=== PATIENT | female | born 1955 | race African-American/Black ===

== ENCOUNTER 2017-04-13 10:17 | Observation (INO) | payer OTHER ==
[~2017-04-13] VITALS: Ht 165.1 cm; Wt 75.3 kg
[2017-04-13] MEDS ORDERED: HYDROmorphone PF 1 MG/ML DISP.SYRIN IV PRN (10:45)
[2017-04-13 10:53] LABS: BASO # 0.1 x10^3/uL (0.0-0.2); BASO % 1 % (0-3); EOS % 0 % (0-3); HEMATOCRIT 38.6 % (36.0-47.0); LYMPH # 1.8 x10^3/uL (1.0-4.8); LYMPH % 21 % (24-48); MEAN CORPUSCULAR HEMOGLOBIN 32 pg (25-35); MEAN CORPUSCULAR HGB CONC 34 g/dL (31-37); MEAN CORPUSCULAR VOLUME 96 fL (79-100); MONO # 0.6 x10^3/uL (0.0-1.1); MONO % 8 % (0-9); NEUT # 6.1 x10^3uL (1.8-7.7); NEUT % 71 % (31-73); PLATELET COUNT 190 x10^3/uL (140-400); RED CELL DISTRIBUTION WIDTH 14.1 % (11.5-14.5); WHITE BLOOD COUNT 8.6 x10^3/uL (4.0-11.0)
--- NOTE | 2017-04-13 10:56 | PHYS DOC ---
Past History Past Medical History: Arthritis Past Surgical History: Hysterectomy, Other Alcohol Use: None Drug Use: None Adult General Chief Complaint Chief Complaint: CHEST PAIN HPI HPI 61-year-old female presenting to the emergency department for 2 chief complaints chest pain and left foot pain. The patient arrives today by EMS after calling EMS because she had chest pain with diaphoresis and lightheadedness. It started about an hour ago was associated with nausea without vomiting. She reports EMS arrived and upon arrival her chest pain began resolving. She was initially on her way to the [facility] for evaluation of her left foot which also hurts. As far as her left foot is concerned the patient has pain that is mild intermittent. She has a history of arthritis that she reports the pain is worse with walking. Nonradiating and without alleviating or exacerbating factors. No medications were given in route to the hospital. The patient has a history of high blood pressure high cholesterol and has smoked for about 40 years.The patient denies unilateral leg swelling hemoptysis family or personal history of blood clotting disorders. The pt denies recent immobilization or surgery. Review of systems is negative for fevers chills cough abdominal pain. Positive for nausea diaphoresis chest pain. All other review of systems is negative unless otherwise noted in history of present illness. ED course: 61-year-old female presenting with left foot pain and chest pain. Triage vital signs unremarkable. Normal heart rate. Normal blood pressure. Upon arrival to the urgency department the patient's chest pain has resolved. EKG obtained. Chest x-ray and x-ray of the left foot were obtained as well. Blood work sent. Aspirin, hydromorphone and Zofran given. On examination the patient had an irregular heartbeat, however on EKG the patient has a clear sinus rhythm. It is possible the patient has intermittent atrial fibrillation. Given the patient's heart score which was calculated to be 5, the pt was admitted for cardiac rule out, further evaluation workup and care. Review of Systems Review of Systems SEE ABOVE Physical Exam Physical Exam Constitutional: Well developed, well nourished, no acute distress, non-toxic appearance. [] HENT: Normocephalic, atraumatic, bilateral external ears normal, oropharynx moist, no oral exudates, nose normal. [] Eyes: PERRLA, EOMI, conjunctiva normal, no discharge. [] Neck: Normal range of motion, no tenderness, supple, no stridor. [] Cardiovascular: Heart rate is regular with an irregular rhythm. No murmurs present. Lungs & Thorax: Bilateral breath sounds clear to auscultation [] Abdomen: Bowel sounds normal, soft, no tenderness, no masses, no pulsatile masses. [] Skin: Warm, dry, no erythema, no rash. [] Back: No tenderness, no CVA tenderness. [] Extremities: The patient has mild pain in the left foot along the dorsum of the foot. Nontender ankle with normal range of motion. Palpable pulse. 2 second cap refill. Normal temperature to touch and color. Neurologic: Alert and oriented X 3, normal motor function, normal sensory function, no focal deficits noted. [] Psychologic: Affect normal, judgement normal, mood normal. [] EKG EKG EKG reviewed by myself shows sinus rhythm with regular rate. Jones is normal. ST segments are congruent. Not suggestive of ACS. Radiology/Procedures Radiology/Procedures Chest x-ray reviewed by myself shows no obvious infiltrate or pneumothorax present. No obvious acute cardiopulmonary process present. Course & Med Decision Making Course & Med Decision Making Pertinent Labs and Imaging studies reviewed. (See chart for details) [] Dragon Disclaimer Dragon Disclaimer This chart was dictated in whole or in part using Voice Recognition software in a busy, high-work load, and often noisy Emergency Department environment. It may contain unintended and wholly unrecognized errors or omissions. Departure Departure: Impression: Primary Impression: Chest pain Additional Impression: Left foot pain Disposition: 09 ADMITTED INPATIENT Admitting Physician: Ivana Jimenez Condition: STABLE Referrals: JANES HERNANDEZ APRN (PCP) Problem Qualifiers PEDRO NARANJO MD Apr 13, 2017 10:56
--- NOTE | 2017-04-13 10:58 | RAD ---
Three-view left foot radiographs 04/13/2017 Clinical history: Left foot pain. AP, lateral and oblique digital portable radiographs of the left foot were obtained. No fracture or dislocation of the left foot is seen. Mild to moderate degenerative changes are seen throughout the interphalangeal and first MTP joint of the left foot are seen. Impression: Degenerative changes are seen involving the left foot as outlined above. No acute osseous abnormality is seen.
--- NOTE | 2017-04-13 11:05 | EKG ---
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
--- NOTE | 2017-04-13 11:05 | RAD ---
AP portable chest radiograph 04/13/2017 Clinical History: Chest pain with dizziness. An AP portable erect digital radiograph of the chest was obtained. Comparison study is dated 12/03/2007. The cardiac silhouette is normal in size and configuration. The thoracic aorta is mildly tortuous. Atherosclerotic calcification of the thoracic aorta is seen. A 5 mm calcified granuloma overlies the left midlung, unchanged. No acute pulmonary infiltrate is seen. No pleural effusion or pneumothorax is noted. Degenerative changes are seen involving the thoracic spine and both shoulders. Impression: No acute abnormality is seen.
[2017-04-13 11:14] LABS: ALBUMIN 3.5 g/dL (3.4-5.0); CALCIUM 8.9 mg/dL (8.5-10.1); CREATININE 1.1 mg/dL (0.6-1.0); DIRECT BILIRUBIN 0.1 mg/dL (0.0-0.2); GFR 61.3; POTASSIUM 3.6 mmol/L (3.5-5.1); TOTAL BILIRUBIN 0.4 mg/dL (0.2-1.0); TOTAL PROTEIN 7.4 g/dL (6.4-8.2)
[2017-04-13] MEDS ORDERED: ASPIRIN 81 MG TAB.CHEW PO ONE (11:15)
[2017-04-13] MEDS ORDERED: ONDANSETRON PF 4 MG/2 ML VIAL. IV ONE (11:15)
[2017-04-13] MEDS ORDERED: MORPHINE SULFATE 2 MG/ML DISP.SYRIN. IV PRN (11:45)
[2017-04-13] MEDS ORDERED: ONDANSETRON PF 4 MG/2 ML VIAL. IV PRN (11:45)
[2017-04-13 12:37] LABS: BACTERIA,URINE FEW /HPF (0-FEW); BILIRUBIN,URINE NEG (NEG); CLARITY,URINE CLEAR; COLOR,URINE YELLOW; GLUCOSE,URINE NEG (NEG); HYALINE CASTS, URINE OCC /HPF; NITRITE,URINE NEG (NEG); SQUAMOUS EPITHELIAL CELL,UR FEW /LPF; UROBILINOGEN,URINE 0.2 mg/dL (0.2 mg/dL); WBC,URINE OCC /HPF (0-4)
[2017-04-13 13:05] VITALS: BP 128/69
--- NOTE | 2017-04-13 14:14 | PDOC ---
PROVIDER NOTE PROVIDER NOTE PROVIDER NOTE CC: Chest pain HPI: 61 y.o woman presenting with chest pain. She had some left sided chest pain while she was getting ready to [facility]. she has history of RA. She denies any baseline angina, chest pain, orthopnea, PND or LE edema. No syncope or palpitations. Pain was sharp in nature, last a few seconds, recurred and she feels that this was related to intense pain in her foot. She had some associated nausea but no persistent issues recently. She denies any pain now. 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 Physical Exam: Constitutional: Well developed, well nourished, no acute distress, non-toxic appearance. [] HENT: Normocephalic, atraumatic, bilateral external ears normal, oropharynx moist, no oral exudates, nose normal. [] Eyes: PERRLA, EOMI, conjunctiva normal, no discharge. [] Neck: Normal range of motion, no tenderness, supple, no stridor. [] Cardiovascular:Heart rate regular rhythm, no murmur [] Lungs & Thorax: Bilateral breath sounds clear to auscultation [] Abdomen: Bowel sounds normal, soft, no tenderness, no masses, no pulsatile masses. [] Skin: Warm, dry, no erythema, no rash. [] Back: No tenderness, no CVA tenderness. [] Extremities: No tenderness, no cyanosis, no clubbing, ROM intact, no edema. [] Neurologic: Alert and oriented X 3, normal motor function, normal sensory function, no focal deficits noted. [] Psychologic: Affect normal, judgement normal, mood normal. [] Labs: negative troponin Normal EKG CXR unremarkable. Impression: 1. Non-cardiac CP 2. HTN - controlled 3. RA Plan: 1. If next set of trop are negative, ok to DC from CV perspective. 2. F/u on an outpt basis with our office, information given. Pls call w/questions. Thanks for consult. RITCHIE MACHADO MD Apr 13, 2017 14:14
[2017-04-13 14:25] VITALS: BP 134/72
[2017-04-13] MEDS ORDERED: ATEN50TA PO (16:10)
[2017-04-13] MEDS ORDERED: POTA20TA82 PO (16:10)
[2017-04-13] MEDS ORDERED: LEVO100T5 PO (16:10)
[2017-04-13] MEDS ORDERED: SENN-37 PO (16:10)
[2017-04-13] MEDS ORDERED: PRED2.5T PO (16:10)
[2017-04-13] MEDS ORDERED: HYDR25TA9 PO (16:10)
[2017-04-13] MEDS ORDERED: CHOL10003 PO (16:10)
[2017-04-13] MEDS ORDERED: FOLI1TAB16 PO (16:10)
[2017-04-13] MEDS ORDERED: methylPREDNISolone SOD SUCC PF 40 MG/ML VIAL. IV ONE (16:30)
[2017-04-13] MEDS ORDERED: KETOROLAC 15 MG/ML VIAL. IV ONE (16:35)
[2017-04-13] MEDS ORDERED: HYDROmorphone PF 1 MG/ML DISP.SYRIN IV ONE (16:35)
[2017-04-13 18:01] VITALS: BP 115/67
--- NOTE | 2017-04-13 19:16 | PDOC3 ---
Discharge Summary Visit Information Date of Admission: Apr 13, 2017 Date of Discharge: Apr 13, 2017 Final Diagnosis Problems Medical Problems: (1) Chest pain, non cardiac Status: Acute (2) Left foot pain-RA flare Status: Acute Problems: Brief Hospital Course Allergies Allergies Coded Allergies Type Severity Reaction Last Updated Verified No Known Drug Allergies 04/13/17 No Vital Signs Vital Signs Date Time Temp Pulse Resp B/P (MAP) Pulse Ox O2 Delivery O2 Flow Rate FiO2 04/13/17 18:01 97.4 62 20 115/67 (83) 97 Room Air Lab Results Laboratory Tests Test 04/13/17 10:40 04/13/17 12:00 04/13/17 15:00 White Blood Count 8.6 x10^3/uL (4.0-11.0) Red Blood Count 4.00 x10^6/uL (3.50-5.40) Hemoglobin 13.0 g/dL (12.0-15.5) Hematocrit 38.6 % (36.0-47.0) Mean Corpuscular Volume 96 fL (79-100) Mean Corpuscular Hemoglobin 32 pg (25-35) Mean Corpuscular Hemoglobin Concent 34 g/dL (31-37) Red Cell Distribution Width 14.1 % (11.5-14.5) Platelet Count 190 x10^3/uL (140-400) Neutrophils (%) (Auto) 71 % (31-73) Lymphocytes (%) (Auto) 21 % (24-48) Monocytes (%) (Auto) 8 % (0-9) Eosinophils (%) (Auto) 0 % (0-3) Basophils (%) (Auto) 1 % (0-3) Neutrophils # (Auto) 6.1 x10^3uL (1.8-7.7) Lymphocytes # (Auto) 1.8 x10^3/uL (1.0-4.8) Monocytes # (Auto) 0.6 x10^3/uL (0.0-1.1) Eosinophils # (Auto) 0.0 x10^3/uL (0.0-0.7) Basophils # (Auto) 0.1 x10^3/uL (0.0-0.2) Sodium Level 141 mmol/L (136-145) Potassium Level 3.6 mmol/L (3.5-5.1) Chloride Level 105 mmol/L (98-107) Carbon Dioxide Level 33 mmol/L (21-32) Anion Gap 3 (6-14) Blood Urea Nitrogen 14 mg/dL (7-20) Creatinine 1.1 mg/dL (0.6-1.0) Estimated GFR (Cockcroft-Gault) 61.3 Glucose Level 145 mg/dL (70-99) Calcium Level 8.9 mg/dL (8.5-10.1) Total Bilirubin 0.4 mg/dL (0.2-1.0) Direct Bilirubin 0.1 mg/dL (0.0-0.2) Aspartate Amino Transf (AST/SGOT) 17 U/L (15-37) Alanine Aminotransferase (ALT/SGPT) 21 U/L (14-59) Alkaline Phosphatase 66 U/L (46-116) Troponin I Quantitative < 0.017 ng/mL (0-0.055) < 0.017 ng/mL (0-0.055) YP-Osc-F-Type Natriuretic Peptide 120 pg/mL (0-124) Total Protein 7.4 g/dL (6.4-8.2) Albumin 3.5 g/dL (3.4-5.0) Lipase 105 U/L (73-393) Urine Collection Type Unknown Urine Color Yellow Urine Clarity Clear Urine pH 6.0 Urine Specific [place] 1.015 Urine Protein Neg (NEG-TRACE) Urine Glucose (UA) Neg mg/dL (NEG) Urine Ketones (Stick) Neg mg/dL (NEG) Urine Blood Trace (NEG) Urine Nitrite Neg (NEG) Urine Bilirubin Neg (NEG) Urine Urobilinogen Dipstick 0.2 mg/dL (0.2 mg/dL) Urine Leukocyte Esterase Neg (NEG) Urine RBC 3-5 /HPF (0-2) Urine WBC Occ /HPF (0-4) Urine Squamous Epithelial Cells Few /LPF Urine Bacteria Few /HPF (0-FEW) Urine Hyaline Casts Occ /HPF Urine Mucus Slight /LPF Brief Hospital Course Ms. De La Cruz is a 61 old female who developed sever left foot pain which she attributed to a RA flare. While she was having the sever pain in her foot she developed some chest pain with diaphoresis. It resolved but she was transported to the hospital. Troponins were negative. She was seen by the advertising sales manager. Physical exam negative except for a tender warm foot with erythema at the 5th metatarsal. she was given solumedrol, dilauded and toradol and discharged. she will see her doctor at the [facility]. Discharge Information Condition at Discharge: Improved, Stable Disposition/Orders: D/C to Home Dischare Medications Current Medications Hydromorphone HCl (Dilaudid) 0.5 mg PRN Q30MIN PRN IV severe pain Last administered on 04/13/17 11:01; Start 04/13/17 at 10:45 Ondansetron HCl (Zofran) 4 mg 1X ONCE IV Last administered on 04/13/17 11:00 ; Start 04/13/17 at 11:15; Stop 04/13/17 at 11:16; Status DC Aspirin (Children'S Aspirin) 324 mg 1X ONCE PO Last administered on 04/13/17 11:01; Start 04/13/17 at 11:15; Stop 04/13/17 at 11:16; Status DC Ondansetron HCl (Zofran) 4 mg PRN Q4HRS PRN IV NAUSEA/VOMITING; Start 04/13/17 at 11:45; Stop 04/14/17 at 11:44 Morphine Sulfate (Morphine 2mg Syringe) 2 mg PRN Q2HR PRN IV PAIN Last administered on 04/13/17 13:37; Start 04/13/17 at 11:45; Stop 04/14/17 at 11:44 Methylprednisolone Sodium Succinate (SOLU-Medrol 40MG VIAL) 40 mg 1X ONCE IV Last administered on 04/13/17 17:03; Start 04/13/17 at 16:30; Stop 04/13/17 at 16:31; Status DC Hydromorphone HCl (Dilaudid) 1 mg 1X ONCE IV Last administered on 04/13/17 17 :04; Start 04/13/17 at 16:35; Stop 04/13/17 at 16:36; Status DC Ketorolac Tromethamine (Toradol) 15 mg 1X ONCE IV Last administered on 17:03; Start 04/13/17 at 16:35; Stop 04/13/17 at 16:36; Status DC Active Scripts Active Reported Hydrochlorothiazide Tablet (Hydrochlorothiazide) 25 Mg Tablet 1 Tab PO DAILY Prednisone 2.5 Mg Tablet 2 Tab PO DAILY Potassium Chloride 20 Meq Tablet.er 20 Meq PO DAILY Levothyroxine Sodium 100 Mcg Tablet 1 Tab PO DAILY06 Folic Acid 1 Mg Tablet 1 Tab PO DAILY Senokot-S Tablet (Sennosides/Docusate Sodium) 1 Each Tablet 2 Tab PO BID Vitamin D3 (Cholecalciferol (Vitamin D3)) 1,000 Unit Tablet 3 Tab PO BID Atenolol 50 Mg Tablet 1 Tab PO DAILY SANDIE DEUTSCH DO Apr 13, 2017 19:16
--- NOTE | 2017-04-14 02:32 | ACF ---
Admission Criteria Forms CARDIOLOGY [facility]G Clinical Indications for Admission to Inpatient Care ( Place 'X' for any and all applicable criteria): Hospital admission is needed for appropriate care of the patient because of ANY ONE of the following (1): [ ] I. Hemodynamic instability as indicated by ALL of the following (1)(2)(3) (4)(5) [ ]a) Vital signs or other findings not as expected for chronic patient condition or baseline [ ]b) Instability indicated by ANY ONE of the following: [ ]i) Hypotension [ ]ii) Symptomatic Tachycardia unresponsive to treatment ( e.g., analgesia, fluids, sedation as indicated) [ ]iii) Inadequate perfusion indicated by ANY ONE of the following: [ ] 1) Lactic acidosis (> 2 mmol/L) [ ] 2) New abnormal capillary refill (> 3 seconds) [ ] 3) Reduced urine output [ ] 4) New altered mental status [ ]iv) Orthostatic vital sign changes unresponsive to treatment (e.g., fluids) [ ]v) IV inotropic or vasopressor medication required to maintain adequate blood pressure or perfusion [ ] II. Severe heart failure as indicated by ANY ONE of the following(17)(18) [ ]a) Respiratory distress [ ]b) Hypotension [ ]c) Anasarca (refractory to outpatient therapy) [ ]d) Cardiac arrhythmias of immediate concern [ ]e) Myocardial ischemia [ ] III. Cardiac arrhythmias or findings of immediate concern indicated by ANY ONE of the following (19)(20): [ ] a) Heart rhythms that are inherently dangerous or unstable indicated by ANY ONE of the following (21)(22)(23): [ ] i) Resuscitated ventricular fibrillation or cardiac arrest [ ] ii) Ventricular escape rhythm [ ] iii) Sustained ventricular tachycardia (30 seconds or more of ventricular rhythm at greater than 100 beats per minute) [ ] iv) Nonsustained ventricular tachycardia and ANY ONE of the following: [ ] 1) Suspected cardiac ischemia as cause or consequence of ventricular tachycardia [ ] 2) In setting of acute myocarditis [ ] b) Unstable cardiac conduction defects indicated by ANY ONE of the following(23)(24)(25) [ ] i) Type II second-degree atrioventricular block [ ]ii) Third-degree atrioventricular block [ ]iii) New-onset left bundle branch block with suspected myocardial ischemia [ ]c) Any heart rhythm and ANY ONE of the following (21)(22)(26)(27) (28) [ ] i) Continuous long-term ECG monitoring needed (e.g., initiation of drug requiring monitoring for more than 24 hours) [ ] ii) Patient has automatic implanted cardioverter defibrillator that is repeatedly firing, malfunctioning, or in need of immediate adjustment of settings beyond the scope of ambulatory or observation care [ ]d) Heart rhythms of concern due to ANY ONE of the following: [ ] i) Hypotension [ ] ii) Respiratory distress [ ] iii) Association with other significant symptoms (e.g., bradycardia with syncope or ongoing dizziness, supraventricular tachycardia with chest pain (14)(15)(17) [ ] IV. Monitoring for cardiac contusion beyond the scope of observation care needed [A](30)(31)(32) [ ] V. Surgical or device complication (e.g., valve replacement complication , pacemaker dysfunction) (35)(41)(44)(45)(46) [ ] . Inpatient palliative care needed. [B](49) Also use Inpatient Palliative Care Criteria [ ] VII. Nonbacterial thrombotic (marantic) endocarditis (36)(43)(47)(48) [X] VIII. Cardiology condition, symptom, or finding for which emergency and observation care has failed or are not considered appropriate. [ ] IX. Acute valvular disease requiring inpatient as indicated by ANY ONE of the following (41) [ ]a) Acute valvular regurgitation (42) [ ]b) Noninfectious valvulitis (43) [ ]c) Obstructive valve thrombosis [ ]d) Paravalvular leak [ ]e) Other significant valvular disorder remaining after emergency or observation level of care (as appropriate) [ ]X. Pericardial disease requiring inpatient treatment as indicated by ANY ONE of the following (33)(34)(35)(36)(37) [ ]a) Suspected tamponade (38)(39)(40) [ ]b) Hemopericardium [ ]c) Other significant pericardial disorder remaining after emergency or observation level of care (as appropriate) [ ] XI. Cardiac ischemia beyond scope of emergency and observation care. [ ] XII. Hypertension requiring inpatient treatment as indicated by ANY ONE of the following (6)(7)(8) [ ]a) SBP greater than 220 mm Hg or DBP greater than 120 mmHg despite treatment [ ]b) SBP greater than 140 mm Hg or DBP greater than 100 mm Hg with evidence of acute end organ damage as indicated by ANY ONE of the following [ ] i) Encephalopathy [ ] ii) Acute renal failure as indicated by new onset of ANY ONE of the following (9)(10)(11)(12)(13) [ ]1) 3-fold rise in serum creatinine from baseline [ ]2) Serum creatinine greater than 4 mg/dL ( 354 micromoles/L) with acute rise greater than 0.5 mg/dL (44.2 micromoles/L) [ ]3) Reduction of more than 75% in estimated glomerular filtration rate from baseline [ ]4) Estimated glomerular filtration rate less than 35 mL/min/1.73m2 (0.59 mL/sec/1.73m2) in child up to 18 years of age [ ]5) Cessation of urine output indicated by ALL of the following [ ]A. Adequate volume status [ ]B. Inadequate urine output as indicated by ANY ONE of the following [ ]a. Urine output less than 0.3 mL/kg/hr for 24 hours [ ]b. Anuria (urine output less than 0.1 mL/kg/hr) for 12 hours [ ] iii) Aortic dissection [ ] iv) Myocardial Ischemia [ ] v) Left ventricular heart failure [ ]vi) Retinal Hemorrhage [ ]vii) Other significant finding [ ]c) Hypertension in child requiring inpatient treatment as indicated by ALL of the following(14)(15)(16) [ ] i) Outpatient treatment not effective, not available, or not appropriate [ ]ii) SBP or DBP greater than 95th percentile for age [ ]iii) Evidence of acute end organ damage as indicated by ANY ONE of the following [ ]1) Altered mental status [ ]2) Acute renal failure as indicated by new onset of ANY ONE of the following(9)(10)(11)(12)(13) [ ]A. 3-fold rise in serum creatinine from baseline [ ]B. Serum creatinine greater than 4 mg/dL (354 micromoles/L) with acute rise greater than 0.5 mg/dL (44.2 micromoles/L) [ ]C. Reduction of more than 75% in estimated glomerular filtration rate from baseline [ ]D. Estimated glomerular filtration rate less than 35 mL/min/1.73m2 (0.59 mL/sec/1.73m2) in child up to 18 years of age [ ]E. Cessation of urine output indicated by ALL of the following [ ]a. Adequate volume status [ ]b. Inadequate urine output as indicated by ANY ONE of the following [ ]i) Urine output less than 0.3 mL/kg/hr for 24 hours [ ]ii) Anuria ( urine output less than 0.1 mL/kg/hr) for 12 hours [ ]3) Severe headache [ ]4) Visual disturbance [ ]5) Retinal hemorrhage [ ]6) Other significant finding [ ]XIII. Complications of transplanted heart indicated by ANY ONE of the following(61): [ ]a) Acute graft rejection requiring inpatient management (eg, intravenous immunosuppression)(62)(63) [ ]b) Acute graft heart failure indicated by ANY ONE of the following(64): [ ]i) Hemodynamic instability [ ]ii) Cardiac arrhythmias of immediate concern [ ]iii) Pulmonary edema that is very severe (eg, mechanical ventilation needed, imminent or likely, need for 100% oxygen to keep oxygen saturation above 90%) [ ]iv) Pulmonary edema that is persistent as indicated by ALL of the following: [ ]1) New need for oxygen therapy to keep oxygen saturation above 90% (or increased FiO2 need from baseline) [ ]2) Has not improved sufficiently with emergency department or observation care IV diuretics or other heart failure treatments[E] [ ]v) Altered mental status that is severe or persistent [ ]vi) Increased creatinine (new on laboratory test) with reduction of more than 50% in estimated glomerular filtration rate from baseline [ ]vii) Progressively (ongoing) rising creatinine (known from past laboratory test) with reduction of more than 25% in estimated glomerular filtration rate from baseline [ ]viii) Acute renal failure [ ]ix) Acute peripheral ischemia (eg, examination shows pulseless, cool, mottled, or cyanotic extremity) [ ]x) Pulmonary artery catheter monitoring needed [ ]xi) Other sign or symptom of heart failure requiring inpatient treatment (ie, too severe or not responsive to outpatient and observation care treatment) [ ]c) Infection requiring inpatient management (eg, Hemodynamic instability, need for intravenous antimicrobial treatment)(66)(67)(68)(69)(70) [ ]d) Cardiac allograft vasculopathy requiring inpatient management ( eg evidence of cardiac ischemia)(71) [ ]e) Other complication of transplanted heart (eg, stroke, severe pulmonary hypertension, severe valvular dysfunction) requiring inpatient management(72) The original [facility] content created by [facility] has been revised. The portions of the content which have been revised are identified through the use of italic text or in bold, and [facility] has neither reviewed nor approved the modified material. All other unmodified content is copyright [facility]. Please see references footnoted in the original [facility] edition 2016 Admission Criteria Met?: Yes DELONTE HURST Apr 14, 2017 02:32
== END 2017-04-13 19:00 | disposition home or self-care (01) ==
LOC: ER 10:17 → 1 SOUTH 12:00
PROVIDERS: ADMIT Family Medicine; ATTEND Family Medicine
DX: R07.89 Other chest pain (principal); M06.9 Rheumatoid arthritis, unspecified; I10 Essential (primary) hypertension; E78.00 Pure hypercholesterolemia, unspecified; Z87.891 Personal history of nicotine dependence; Z90.710 Acquired absence of both cervix and uterus; Z79.82 Long term (current) use of aspirin
CPT/HCPCS: 36415; 71010; 73630; 80048; 80076; 81001; 83690; 83880; 84484; 85027; 93005; 96374; 96375; 96376; 99285; G0378; J1170; J1885; J2270; J2405; J2920; G0379

== ENCOUNTER → 2017-11-07 | Outpatient (CLI) | payer OTHER ==
[~2017-11-07] MED LIST: ATEN50TA PO; CHOL10003 PO; FOLI1TAB16 PO; HYDR25TA9 PO; LEVO100T5 PO; POTA20TA82 PO; PRED2.5T PO; SENN-37 PO
--- NOTE | 2017-11-07 11:28 | RAD ---
DATE: 11/07/2017 EXAM: DIGITAL SCREEN BILAT W/CAD HISTORY: Asymptomatic screening mammogram COMPARISON: Mammogram from 08/03/2015, 01/12/2015, the 08/11/2014, 07/21/2014 This study was interpreted with the benefit of Computerized Aided Detection (CAD). The breast parenchyma is heterogeneously dense, which could reduce sensitivity of mammography. Breast parenchyma level C. FINDINGS: Bilateral CC and MLO views of the breasts were performed. Right breast: There are no suspicious microcalcifications, masses or areas of architectural distortion. Left breast: There are no suspicious microcalcifications, masses or areas of architectural distortion. Findings are stable from prior mammogram. IMPRESSION: Negative bilateral mammogram. BI-RADS CATEGORY: 1 NEGATIVE RECOMMENDED FOLLOW-UP: 12M 12 MONTH FOLLOW-UP PQRS compliance statement: Patient information was entered into a reminder system with a target due date 11/07/2018 for the next mammogram. Mammography is a sensitive method for finding small breast cancers, but it does not detect them all and is not a substitute for careful clinical examination. A negative mammogram does not negate a clinically suspicious finding and should not result in delay in biopsying a clinically suspicious abnormality. "Our facility is accredited by the [employer] Mammography Program."
== END | disposition home or self-care (01) ==
LOC: MAMMO 09:58
PROVIDERS: ATTEND Nurse Practitioner
DX: Z12.31 Encounter for screening mammogram for malignant neoplasm of breast (principal)
CPT/HCPCS: 77067

== ENCOUNTER → 2018-12-18 | Outpatient (CLI) | payer OTHER ==
[~2018-12-18] MED LIST changes: +HYDR-2145 PO; -HYDR25TA9 PO
--- NOTE | 2018-12-18 14:16 | RAD ---
DATE: 12/18/2018 EXAM: MAMMO JUANA SCREENING BILATERAL HISTORY: Routine screening COMPARISON: 11/07/2017 This study was interpreted with the benefit of Computerized Aided Detection (CAD). Breast Density: DENSE The breast parenchyma is dense, which could reduce the sensitivity of mammography. Breast parenchyma level density D. FINDINGS: 2-D and 3-D tomosynthesis imaging was performed in CC and MLO projections. No new or enlarging breast densities are seen. No suspicious microcalcifications are evident. IMPRESSION: Stable mammograms without evidence of malignancy. BI-RADS CATEGORY: 1 NEGATIVE RECOMMENDED FOLLOW-UP: 12M 12 MONTH FOLLOW-UP PQRS compliance statement: Patient information was entered into a reminder system with a target due date for the next mammogram. Mammography is a sensitive method for finding small breast cancers, but it does not detect them all and is not a substitute for careful clinical examination. A negative mammogram does not negate a clinically suspicious finding and should not result in delay in biopsying a clinically suspicious abnormality. "Our facility is accredited by the [employer] Mammography [employer]."
== END | disposition home or self-care (01) ==
LOC: MAMMO 10:54
PROVIDERS: ATTEND Nurse Practitioner Family
DX: Z12.31 Encounter for screening mammogram for malignant neoplasm of breast (principal)
CPT/HCPCS: 77063; 77067

== ENCOUNTER → 2020-03-09 | Outpatient (CLI) | payer OTHER ==
[~2020-03-09] MED LIST changes: +POTA20TA4 PO; -POTA20TA82 PO
--- NOTE | 2020-03-10 19:16 | RAD ---
DATE: 03/09/2020 2:00 PM EXAM: MAMMO JUANA SCREENING BILATERAL HISTORY: Screening COMPARISON: 12/18/2018, 11/07/2017 Bilateral CC and MLO views of the breasts were performed. Bilateral breast tomosynthesis was performed in CC and MLO projections. This study was interpreted with the benefit of Computerized Aided Detection (CAD). FINDINGS: Breast Density: HETERO The breast parenchyma Is heterogeneously dense, which could reduce sensitivity of mammography. Breast parenchyma level C No suspicious masses, microcalcifications or architectural distortion is present to suggest malignancy in either breast. The visualized axillae are unremarkable. IMPRESSION: No mammographic evidence of malignancy. BI-RADS CATEGORY: 1 NEGATIVE RECOMMENDED FOLLOW-UP: 12M 12 MONTH FOLLOW-UP Annual screening mammography is recommended, unless clinically indicated sooner based on symptoms or change in physical exam. PQRS compliance statement: Patient information was entered into a reminder system with a target due date 03/10/2021 for the next mammogram. Mammography is a sensitive method for finding small breast cancers, but it does not detect them all and is not a substitute for careful clinical examination. A negative mammogram does not negate a clinically suspicious finding and should not result in delay in biopsying a clinically suspicious abnormality. "Our facility is accredited by the [employer] Mammography [employer]."
== END ==
LOC: MAMMO 13:51
PROVIDERS: ATTEND Nurse Practitioner Family
DX: Z12.31 Encounter for screening mammogram for malignant neoplasm of breast (principal)
CPT/HCPCS: 77063; 77067

== ENCOUNTER → 2020-12-09 | Day surgery (SDC) | payer OTHER ==
[2020-12-09 12:22] VITALS: BP 132/63
== END | disposition home or self-care (01) ==
LOC: SURG 12:04
PROVIDERS: ATTEND Anesthesiology
DX: M47.816 Spondylosis without myelopathy or radiculopathy, lumbar region (principal); M19.90 Unspecified osteoarthritis, unspecified site; I10 Essential (primary) hypertension; E07.9 Disorder of thyroid, unspecified; F17.210 Nicotine dependence, cigarettes, uncomplicated; Z90.710 Acquired absence of both cervix and uterus; E78.00 Pure hypercholesterolemia, unspecified; I20.8 Other forms of angina pectoris; Z98.890 Other specified postprocedural states; Z79.899 Other long term (current) drug therapy; Z80.1 Family history of malignant neoplasm of trachea, bronchus and lung
CPT/HCPCS: 64493; 64494

== ENCOUNTER → 2021-01-06 | Day surgery (SDC) | payer OTHER ==
[2021-01-06 13:28] VITALS: BP 110/68
== END | disposition home or self-care (01) ==
LOC: SURG 12:15
PROVIDERS: ATTEND Anesthesiology
DX: M47.816 Spondylosis without myelopathy or radiculopathy, lumbar region (principal); I20.8 Other forms of angina pectoris; M19.90 Unspecified osteoarthritis, unspecified site; I10 Essential (primary) hypertension; E78.00 Pure hypercholesterolemia, unspecified; E07.9 Disorder of thyroid, unspecified; Z98.890 Other specified postprocedural states; Z80.1 Family history of malignant neoplasm of trachea, bronchus and lung; Z90.710 Acquired absence of both cervix and uterus; Z79.899 Other long term (current) drug therapy; Z87.891 Personal history of nicotine dependence
CPT/HCPCS: 64493; 64494

== ENCOUNTER → 2021-03-25 | Outpatient (CLI) | payer OTHER ==
[2021-01-06 13:28] VITALS: BP 110/68
[~2021-03-25] MED LIST changes: +CARB200C7 PO
--- NOTE | 2021-03-26 19:33 | RAD ---
DATE: 03/25/2021 EXAM: MAMMO JUANA SCREENING BILATERAL HISTORY: Screening COMPARISON: Prior exams dating back to 08/03/2015 This study was interpreted with the benefit of Computerized Aided Detection (CAD). Breast Density: HETERO The breast parenchyma is heterogenously dense, which could reduce sensitivity of mammography. Breast parenchyma level C. FINDINGS: No mass, suspicious calcification, or architectural distortion in either breast. IMPRESSION: No evidence of malignancy. BI-RADS CATEGORY: 1 NEGATIVE RECOMMENDED FOLLOW-UP: 12M 12 MONTH FOLLOW-UP PQRS compliance statement: Patient information was entered into a reminder system with a target due date for the next mammogram. Mammography is a sensitive method for finding small breast cancers, but it does not detect them all and is not a substitute for careful clinical examination. A negative mammogram does not negate a clinically suspicious finding and should not result in delay in biopsying a clinically suspicious abnormality. "Our facility is accredited by the [employer] Mammography [employer]."
== END ==
LOC: MAMMO 11:03
PROVIDERS: ATTEND Nurse Practitioner Family
DX: Z12.31 Encounter for screening mammogram for malignant neoplasm of breast (principal); N64.89 Other specified disorders of breast
CPT/HCPCS: 77063; 77067

== ENCOUNTER → 2021-03-31 | Day surgery (SDC) | payer OTHER ==
[~2021-03-31] MED LIST changes: +BUPIVACAINE MPF 0.25% 10 ML VIAL. IJ ONE; +BUPIVACAINE MPF 0.25% 10 ML VIAL. ONE; +DEXAMETHASONE SOD PHOS 10 MG/ML VIAL. IV ONE; +DEXAMETHASONE SOD PHOS 10 MG/ML VIAL. ONE; +LIDOCAINE 1% Multi-Dose 20 ML VIAL. IJ ONE; +LIDOCAINE 1% PF 30 ML VIAL. ONE; +MIDAZOLAM HCL PF 2 MG/2 ML VIAL. IVP ONE; +MIDAZOLAM HCL PF 2 MG/2 ML VIAL. ONE
[2021-03-31 09:39] VITALS: BP 125/80
== END | disposition home or self-care (01) ==
LOC: SURG 08:07
PROVIDERS: ATTEND Anesthesiology
DX: M47.816 Spondylosis without myelopathy or radiculopathy, lumbar region (principal); M19.90 Unspecified osteoarthritis, unspecified site; I10 Essential (primary) hypertension; F17.210 Nicotine dependence, cigarettes, uncomplicated; Z90.710 Acquired absence of both cervix and uterus; Z98.890 Other specified postprocedural states; Z79.899 Other long term (current) drug therapy
CPT/HCPCS: 64635; 64636; 99152; 99153; J1100; J2250; J3010; J3490

== ENCOUNTER → 2021-04-21 | Day surgery (SDC) | payer OTHER ==
[~2021-04-21] MED LIST changes: -LIDOCAINE 1% Multi-Dose 20 ML VIAL. IJ ONE; +LIDOCAINE 1% PF 30 ML VIAL. INJ ONE
[2021-04-21 10:00] VITALS: BP 127/78
== END ==
LOC: SURG 08:20
PROVIDERS: ATTEND Anesthesiology
DX: M47.816 Spondylosis without myelopathy or radiculopathy, lumbar region (principal); M54.5 Low back pain; Z20.822 Contact with and (suspected) exposure to COVID-19; I10 Essential (primary) hypertension; M19.90 Unspecified osteoarthritis, unspecified site; Z90.710 Acquired absence of both cervix and uterus; Z79.899 Other long term (current) drug therapy; Z96.641 Presence of right artificial hip joint; E89.0 Postprocedural hypothyroidism; Z98.890 Other specified postprocedural states
CPT/HCPCS: 64635; 64636; 99152; C9803; J1100; J2250; J3010; J3490; U0003

== ENCOUNTER → 2021-08-05 | Day surgery (SDC) | payer OTHER ==
[~2021-08-05] MED LIST changes: -BUPIVACAINE MPF 0.25% 10 ML VIAL. IJ ONE; -BUPIVACAINE MPF 0.25% 10 ML VIAL. ONE; -DEXAMETHASONE SOD PHOS 10 MG/ML VIAL. IV ONE; -DEXAMETHASONE SOD PHOS 10 MG/ML VIAL. ONE; -LIDOCAINE 1% PF 30 ML VIAL. INJ ONE; -LIDOCAINE 1% PF 30 ML VIAL. ONE; -MIDAZOLAM HCL PF 2 MG/2 ML VIAL. IVP ONE; -MIDAZOLAM HCL PF 2 MG/2 ML VIAL. ONE
[2021-08-05 15:09] VITALS: BP 135/86
== END | disposition home or self-care (01) ==
LOC: SURG 14:55
PROVIDERS: ATTEND Anesthesiology
DX: M54.59 Other low back pain (principal); G89.29 Other chronic pain; M48.061 Spinal stenosis, lumbar region without neurogenic claudication; I10 Essential (primary) hypertension; M19.90 Unspecified osteoarthritis, unspecified site; Z98.890 Other specified postprocedural states; Z79.899 Other long term (current) drug therapy; Z96.641 Presence of right artificial hip joint; Z90.710 Acquired absence of both cervix and uterus
CPT/HCPCS: 99214; G0463

== ENCOUNTER → 2021-08-18 | Day surgery (SDC) | payer OTHER ==
[~2021-08-18] MED LIST changes: +0.9 % SODIUM CHLORIDE 10 ML VIAL. ONE; +DEXAMETHASONE SOD PHOS 10 MG/ML VIAL. ONE; +IOHEXOL 300 MG/ML 50 ML VIAL. ONE; +LIDOCAINE 1% PF 30 ML VIAL. ONE
[2021-08-18 15:17] VITALS: BP 126/63
== END | disposition home or self-care (01) ==
LOC: SURG 14:01
PROVIDERS: ATTEND Anesthesiology
DX: M54.16 Radiculopathy, lumbar region (principal); G89.29 Other chronic pain; M54.59 Other low back pain; I10 Essential (primary) hypertension; M19.90 Unspecified osteoarthritis, unspecified site; F17.210 Nicotine dependence, cigarettes, uncomplicated; Z98.890 Other specified postprocedural states; Z79.899 Other long term (current) drug therapy; Z96.641 Presence of right artificial hip joint; Z90.710 Acquired absence of both cervix and uterus
CPT/HCPCS: 62323; A4209; A4657; A4930; J1100; Q9967

== ENCOUNTER 2021-10-25 21:51 | Emergency (ER) | payer MEDICARE, OTHER ==
[2021-08-18 15:17] VITALS: BP 126/63
[~2021-10-25 21:51] MED LIST changes: -0.9 % SODIUM CHLORIDE 10 ML VIAL. ONE; -DEXAMETHASONE SOD PHOS 10 MG/ML VIAL. ONE; -IOHEXOL 300 MG/ML 50 ML VIAL. ONE; -LIDOCAINE 1% PF 30 ML VIAL. ONE
--- NOTE | 2021-10-25 22:40 | PHYS DOC ---
Past History Past Medical History: Arthritis Past Surgical History: Hysterectomy, Other Alcohol Use: None Drug Use: None General Adult EDM: Chief Complaint: CHEST PAIN HPI: HPI: ".. I ve been having some chest pain.. coughing more.. more short of breath.. I one time got a bunch of fluid in my lung.. becuase of my rheumatoid.. " Patient is a 66 year old female who presents with above hx and chest pain complaints increased dyspnea and cough past week. Today she has been having chest pain with cough and deep breaths. Patient is not producing any sputum. Patient is a smoker. Has rheumatoid arthritis and is on a methotrexate biweekly protocol for suppression. Patient does smoke approximately 10 cigarettes a day. Patient normally follows at [facility] for care. Patient has known history of osteoarthritis as well as rheumatoid arthritis, hypertension, tobacco use, and history of Covid infection in August 2021. Patient has not completed COVID vaccinations or flu vaccinations. Patient has been taking her hypertensive meds. No recent travel. No specific ill contacts. Patient normally follows with Dr. Shyann Juárez. Review of Systems: Review of Systems: Constitutional: Denies fever or chills Eyes: Denies change in visual acuity HENT: Denies nasal congestion or sore throat Respiratory: Denies cough or shortness of breath Cardiovascular: Complains of chest pain. GI: Denies abdominal pain, nausea, vomiting, bloody stools or diarrhea : Denies dysuria Musculoskeletal: Denies back pain or joint pain Integument: Denies rash Neurologic: Denies headache, focal weakness or sensory changes Endocrine: Denies polyuria or polydipsia Lymphatic: Denies swollen glands Psychiatric: Denies depression or anxiety Family History: Family History: Noncontributory to presentation Current Medications: Current Meds: See nursing for home meds Allergies: Allergies: Allergies Coded Allergies Type Severity Reaction Last Updated Verified No Known Drug Allergies 08/18/21 No Physical Exam: PE: Constitutional: In moderate acute distress, non-toxic appearance. Wearing her Leopard mask HENT: Normocephalic, atraumatic, bilateral external ears normal, oropharynx moist, no oral exudates, nose normal. [] Eyes: PERRLA, EOMI, conjunctiva normal, no discharge. [] Neck: Normal range of motion, no tenderness, supple, no stridor. [] Cardiovascular: Tachycardia heart rate regular rhythm, no murmur [] bedside m onitor shows a sinus tachycardia Lungs & Thorax: Bilateral breath sounds equal apex with few scattered wheezes on auscultation []. When patient coughs reports marked chest pain Abdomen: Bowel sounds normal, soft, no tenderness, no masses, no pulsatile masses. [] Skin: Warm, dry, no erythema, no rash. [] Back: No tenderness, no CVA tenderness. [] Extremities: No tenderness, no cyanosis, no clubbing, ROM intact, no edema. Arthritic changes. No findings of significant cording Neurologic: Alert and oriented X 3, moves all extremities on request, does have distal sensory, no focal deficits noted. [] Psychologic: Affect anxious, judgement normal, mood normal. [] EKG: EKG: My interpretation of EKG shows a sinus rhythm at 72 bpm. No findings acute STEMI of contralateral changes. Time of EKG is 2248 hrs. [] Radiology/Procedures: Radiology/Procedures: [] Heart Score: C/O Chest Pain: Yes HEART Score for Chest Pain: HEART Score for Chest Pain Response (Comments) Value History Slighlty/Non-Suspicious 0 ECG Normal 0 Age >45 - < 65 1 Risk Factors 1 or 2 Risk Factors 1 Troponin < Normal Limit 0 Total 2 Risk Factors: Risk Factors: DM, Current or recent (<one month) smoker, HTN, HLP, family history of CAD, obesity. Risk Scores: Score 0 - 3: 2.5% MACE over next 6 weeks - Discharge Home Score 4 - 6: 20.3% MACE over next 6 weeks - Admit for Clinical Observation Score 7 - 10: 72.7% MACE over next 6 weeks - Early Invasive Strategies Course & Med Decision Making: Course & Med Decision Making Pertinent Labs and Imaging studies reviewed. (See chart for details) Patient declines admission. Patient take Eliquis 10 mg twice a day for next 7 days. Then take Eliquis 5 mg twice a day for 30 days. Patient is to follow-up with her primary care before 30 days. Patient can continue her methotrexate regimen. Patient to return if any concerns. Patient take Tylenol and ibuprofen for pain. Patient to take a Zithr omax 250 a day for the next 5 days. Patient must follow-up. Patient given a copy of her x-rays and CT. Impression: 1. Chest wall pain 2. Multiple pulmonary emboli in both lungs 3. [id number] smoking history 4. History of rheumatoid arthritis 5. History of osteoarthritis 6. Elevated D-dimer 2.16 7. Covid infection in August 2021 [] Feliciano Disclaimer: Feliciano Disclaimer: This electronic medical record was generated, in whole or in part, using a voice recognition dictation system. Departure Departure: Referrals: [facility] (PCP) Scripts Azithromycin (ZITHROMAX) 250 Mg Tablet 250 MG PO DAILY for ANTI-BIOTIC for 5 Days, #5 TAB 0 Refills Prov: FAY TENORIO MD 10/26/21 Apixaban (Eliquis) 5 Mg Tab.ds.pk 5 MG PO BID for bilateral pe for 30 Days, #60 PKG Prov: FAY TENORIO MD 10/26/21 Apixaban (ELIQUIS) 5 Mg Tablet 10 MG PO twice aday x 7 days for bilateral pe for 7 Days, TAB Prov: FAY TENORIO MD 10/26/21 Feliciano Disclaimer This chart was dictated in whole or in part using Voice Recognition software in a busy, high-work load, and often noisy Emergency Department environment. It may contain unintended and wholly unrecognized errors or omissions. FAY TENORIO MD Oct 25, 2021 22:39
[2021-10-25] MEDS ORDERED: IV RINGERS SOLUTION,LACTATED 1,000 ML IV SCH (22:45)
[2021-10-25] MEDS ORDERED: ASPIRIN CHEWABLE 81 MG TABLET. PO ONE (22:45)
[2021-10-25] MEDS ORDERED: AZITHROMYCIN 250 MG TABLET. PO ONE (23:15)
[2021-10-25] MEDS ORDERED: ALBUTEROL SULFATE 8GM INHALER. INH ONE (23:15)
[2021-10-25] MEDS ORDERED: cefTRIAXone SODIUM 1 GM VIAL ONE (23:17)
[2021-10-25] MEDS ORDERED: IV NORMAL SALINE 50ML 50 ML ONE (23:17)
[2021-10-26 00:01] LABS: BASO # 0.1 x10^3/uL (0.0-0.2); BASO % 1 % (0-3); EOS # 0.1 x10^3/uL (0.0-0.7); EOS % 1 % (0-3); HEMATOCRIT 37.4 % (36.0-47.0); HEMOGLOBIN 12.6 g/dL (12.0-15.5); LYMPH # 2.3 x10^3/uL (1.0-4.8); LYMPH % 35 % (24-48); MEAN CORPUSCULAR HEMOGLOBIN 33 pg (25-35); MEAN CORPUSCULAR HGB CONC 34 g/dL (31-37); MEAN CORPUSCULAR VOLUME 99 fL (79-100); MONO # 0.7 x10^3/uL (0.0-1.1); MONO % 10 % (0-9); NEUT # 3.5 x10^3uL (1.8-7.7); NEUT % 53 % (31-73); PLATELET COUNT 167 x10^3/uL (140-400); RED BLOOD COUNT 3.79 x10^6/uL (3.50-5.40); WHITE BLOOD COUNT 6.5 x10^3/uL (4.0-11.0)
[2021-10-26 00:07] LABS: CREATININE 0.9 mg/dL (0.6-1.0); POTASSIUM 3.2 mmol/L (3.5-5.1)
[2021-10-26 00:19] LABS: INFLUENZA A PATIENT NEGATIVE (NEGATIVE); INFLUENZA B PATIENT NEGATIVE (NEGATIVE)
[2021-10-26 00:19] LABS: ALBUMIN 3.3 g/dL (3.4-5.0); DIRECT BILIRUBIN 0.1 mg/dL (0.0-0.2); MAGNESIUM 2.1 mg/dL (1.8-2.4); TOTAL BILIRUBIN 0.2 mg/dL (0.2-1.0); TOTAL PROTEIN 6.9 g/dL (6.4-8.2)
[2021-10-26 01:23] LABS: BACTERIA,URINE 0 /HPF (0-FEW); CLARITY,URINE CLEAR; COLOR,URINE YELLOW; GLUCOSE,URINE NEG (NEG); NITRITE,URINE NEG (NEG); RBC,URINE 0 /HPF (0-2); SQUAMOUS EPITHELIAL CELL,UR FEW /LPF; UROBILINOGEN,URINE 0.2 mg/dL (0.2 mg/dL); WBC,URINE RARE /HPF (0-4)
[2021-10-26 01:26] LABS: AMPHETAMINE/METHAMPHETAMINE NEG (NEG); BARBITURATES NEG (NEG); BENZODIAZEPINES NEG (NEG); CANNABINOIDS NEG (NEG); COCAINE NEG (NEG); METHADONE NEG (NEG); OPIATES NEG (NEG); PHENCYCLIDINE NEG (NEG)
[2021-10-26] MEDS ORDERED: CONTRAST GIVEN. MC PRN (02:15)
[2021-10-26] MEDS ORDERED: IOHEXOL 350 MG/ML 100 ML VIAL. IV ONE (02:15)
[2021-10-26] MEDS ORDERED: APIXABAN 5 MG TABLET. PO SCH (02:43)
--- NOTE | 2021-10-26 02:44 | RAD ---
PQRS Compliance Statement: One or more of the following individualized dose reduction techniques were utilized for this examinat ion: 1. Automated exposure control 2. Adjustment of the mA and/or kV according to patient size 3. Use of iterative reconstruction technique CTA CHEST 10/26/2021 2:06 AM INDICATION: Pleuritic chest pain COMPARISON: None available TECHNIQUE: Axial CT images of the chest were obtained after the intravenous administration of nonioni c contrast. Coronal and sagittal reformats are provided. Maximum intensity projection images of the t horacic vasculature are provided. FINDINGS: The thyroid gland is normal in appearance. There are no pathologically enlarged axillary, mediastinal or hilar lymph nodes. The heart size is within normal limits. No significant pericardial effusion. T horacic aorta is normal in course and caliber. Coronary artery vascular calcifications are present. There is adequate opacification of the pulmonary arterial system. Filling defects are identified with in the anterior right upper lobe segmental and subsegmental pulmonary arteries, right middle lobe seg mental pulmonary arteries and the right lower lobe anterior and lateral basal segment lower lobe pulm onary arteries. Filling defects are identified within the left lower lobe lateral basal segmental pul monary arteries. There are no suspicious solid noncalcified pulmonary nodules. Bandlike opacities at the lung bases, r ight greater than left. Consideration may be given for subsegmental atelectasis, scarring, developing infiltrates or pulmonary infarcts mild paraseptal pulmonary emphysema.. There are no pleural effusio ns. No pulmonary vascular congestion or pneumothorax. Visualized portions of the upper abdomen are within normal limits. No suspicious osseous lesions are visualized. IMPRESSION: Acute pulmonary emboli as detailed above. No CT findings to suggest right heart strain. Bandlike opac ities at the lung bases may represent subsegmental atelectasis versus developing infiltrates or pulmo nary infarcts. FOR INTERNAL CODING PURPOSES Critical result: Findings discussed with FAY TENORIO MD at 10/26/2021 2:40 AM. RESULT CODE: (C) Electronically signed by: Nathalia Patel MD (10/26/2021 2:42 AM) [facility]
[2021-10-26] MEDS ORDERED: AZIT250T PO (02:59)
[2021-10-26] MEDS ORDERED: APIX5TAB5 PO (02:59)
[2021-10-26] MEDS ORDERED: APIX5TAB3 PO (02:59)
--- NOTE | 2021-10-26 03:22 | RAD ---
XR CHEST 1V 10/26/2021 3:04 AM INDICATION: Pulmonary embolism COMPARISON: 04/13/2017 TECHNIQUE: Portable frontal view of the chest is provided. FINDINGS: The cardiomediastinal silhouette is within normal limits. There is subsegmental atelectasis versus de veloping infiltrative the right lung base. There are no significant pleural effusions. There is no pulmonary vascular congestion. No pneumothora x. No suspicious osseous abnormality. IMPRESSION: There is subsegmental atelectasis versus developing infiltrative the right lung base. Electronically signed by: Nathalia Patel MD (10/26/2021 3:20 AM) Z[facility]NA[facility]
--- NOTE | 2021-10-26 06:40 | EKG ---
[address] [address] Test Date: 2021-10-25 Test Time: 22:48:48 Pat Name: KELSY SNOW Department: Room: Gender: F Tub Chucker: ANABEL : 1955 Requested By: FAY TENORIO Order Number: [id number] Reading MD: Denis Diaz Measurements Intervals Independence Rate: 72 P: 31 ID: [id number] QRS: 39 QRSD: 90 T: 27 QT: 394 QTc: 433 Interpretive Statements SINUS RHYTHM Electronically Signed On 10-31-2021 18:31:20 [employer]ANT [employer] by Denis Diaz
[2021-10-26 17:37] LABS: CHOLESTEROL/HDL RATIO 3.3; THYROID STIM HORMONE (TSH) 1.823 uIU/mL (0.358-3.740)
[2021-10-26 23:06] LABS: RHEUMATOID FACTOR 56.3 IU/mL (<14.0)
== END 2021-10-26 03:45 | disposition home or self-care (01) ==
LOC: ER 21:51
DX: R07.89 Other chest pain (principal); I26.99 Other pulmonary embolism without acute cor pulmonale; M06.9 Rheumatoid arthritis, unspecified; R79.1 Abnormal coagulation profile; F17.210 Nicotine dependence, cigarettes, uncomplicated; Z86.16 Personal history of COVID-19; Z20.822 Contact with and (suspected) exposure to COVID-19
CPT/HCPCS: 36415; 71045; 71275; 80048; 80061; 80076; 80307; 81001; 82550; 83690; 83735; 83880; 84443; 84484; 85025; 85379; 85610; 85730; 86141; 86431; 87040; 87428; 93005; 94640; 96365; 99285; J0696; J7120; Q9967; 94664

== ENCOUNTER → 2021-11-03 | Day surgery (SDC) | payer OTHER ==
[~2021-11-03] MED LIST changes: +APIX5TAB3 PO; +APIX5TAB5 PO; +AZIT250T PO
[2021-11-03 14:45] VITALS: BP 123/60
== END | disposition home or self-care (01) ==
LOC: SURG 14:20
PROVIDERS: ATTEND Anesthesiology
DX: M47.816 Spondylosis without myelopathy or radiculopathy, lumbar region (principal); M48.061 Spinal stenosis, lumbar region without neurogenic claudication; M54.50 Low back pain, unspecified; G89.29 Other chronic pain; I10 Essential (primary) hypertension; M19.90 Unspecified osteoarthritis, unspecified site; I20.8 Other forms of angina pectoris; E78.00 Pure hypercholesterolemia, unspecified; E07.9 Disorder of thyroid, unspecified; Z98.890 Other specified postprocedural states; Z79.899 Other long term (current) drug therapy; Z90.710 Acquired absence of both cervix and uterus; Z96.641 Presence of right artificial hip joint; F17.210 Nicotine dependence, cigarettes, uncomplicated; Z80.1 Family history of malignant neoplasm of trachea, bronchus and lung
CPT/HCPCS: 99213; G0463